=== PATIENT | male | born 1985 | race Caucasian/White ===

== ENCOUNTER 2016-10-08 11:37 | Emergency (ER) | payer OTHER ==
[~2016-10-08] VITALS: Ht 185.4 cm; Wt 83.9 kg
[~2016-10-08 11:37] MED LIST: AMOXICILLIN,AM875 MG PO; AMOXICILLIN500 M2 PO; ANAPROX DS550 MG PO; ANUSOL-HC2.5% RC; AUGMENTIN 875 M1 TAB PO; BACTROBAN OINT22 GM PO; CLEOCIN150 MG PO; CYCLOBENZAPRINE5 M3 PO; DARVOCET N 1001 TAB PO; FLEXERIL10 MG PO; HYDROCODONE BIT1 T11 PO; IBU800 MG PO; KEFLEX500 MG PO; MEDROL DOSEPAK4 MG PO; MOTRIN800 MG PO; Motrin,Rufen800 MG PO; NAPROSYN500 MG PO; NORCO 10-325 T1 EACH PO; NORCO 325 MG-101 TAB PO; NORCO 325 MG-51 TAB PO; PARAFON FORTE500 MG PO; PEN-VK500 MG PO; PENICILLIN VK500 MG PO; PERCOCET 325 MG1 TA2 PO; PERCOCET 325 MG1 TA7 PO; PERCOCET 325 MG1 TAB PO; PHENERGAN25 M1 PO; Peridex 473 ML473 ML PO; TRAMADOL HCL50 MG PO; TRIMOX500 MG PO; ULTRAM50 MG PO; VICODIN 5-3001 EACH PO
[2016-10-08 11:51] VITALS: BP 117/64
[2016-10-08] MEDS ORDERED: PREDNISONE10 MG PO (12:06)
== END 2016-10-08 11:55 | disposition home or self-care (01) ==
LOC: ED 11:37
DX: J06.9 Acute upper respiratory infection, unspecified (principal); M25.562 Pain in left knee; F17.200 Nicotine dependence, unspecified, uncomplicated

== ENCOUNTER 2017-03-11 00:11 | Emergency (ER) | payer OTHER ==
[~2017-03-11 00:11] MED LIST changes: +PREDNISONE10 MG PO
[2017-03-11] MEDS ORDERED: AMOXICILLIN500 M2 PO (00:38)
[2017-03-11 15:58] VITALS: BP 121/80
[2017-03-11] MEDS ORDERED: TYLENOL325 M1 PO (16:51)
== END 2017-03-11 16:54 | disposition home or self-care (01) ==
LOC: ED 00:11
DX: K08.89 Other specified disorders of teeth and supporting structures (principal); F17.200 Nicotine dependence, unspecified, uncomplicated; F19.10 Other psychoactive substance abuse, uncomplicated; Z88.6 Allergy status to analgesic agent

== ENCOUNTER 2017-04-26 08:47 | Emergency (ER) | payer OTHER ==
[~2017-04-26] VITALS: Ht 185.4 cm; Wt 83.9 kg
[~2017-04-26 08:47] MED LIST changes: +TYLENOL325 M1 PO
[2017-04-26 08:54] VITALS: BP 139/90
== END 2017-04-26 11:41 | disposition home or self-care (01) ==
LOC: ED 08:47
DX: M25.562 Pain in left knee (principal); F12.10 Cannabis abuse, uncomplicated; F17.200 Nicotine dependence, unspecified, uncomplicated; Z88.6 Allergy status to analgesic agent

== ENCOUNTER 2017-05-01 10:20 | Emergency (ER) | payer OTHER ==
[~2017-05-01] VITALS: Ht 185.4 cm; Wt 83.9 kg
[2017-05-01 10:25] VITALS: BP 151/84
[2017-05-01] MEDS ORDERED: AMOXICILLIN500 M2 PO (10:54)
[2017-05-01] MEDS ORDERED: NAPROSYN500 MG PO (10:54)
== END 2017-05-01 11:09 | disposition home or self-care (01) ==
LOC: ED 10:20
DX: K08.89 Other specified disorders of teeth and supporting structures (principal); F17.200 Nicotine dependence, unspecified, uncomplicated; Z88.6 Allergy status to analgesic agent

== ENCOUNTER 2018-03-22 18:59 | Emergency (ER) | payer MEDICAID ==
[~2018-03-22] VITALS: Ht 185.4 cm; Wt 104.3 kg
[2018-03-22 20:53] VITALS: BP 110/60
[2018-03-22] MEDS ORDERED: KEFLEX500 M1 PO (22:42)
[2018-03-22] MEDS ORDERED: VICODIN 5-3001 EACH PO (22:42)
== END 2018-03-22 22:57 | disposition home or self-care (01) ==
LOC: ED 18:59
DX: S86.912A Strain of unspecified muscle(s) and tendon(s) at lower leg level, left leg, initial encounter (principal); S66.911A Strain of unspecified muscle, fascia and tendon at wrist and hand level, right hand, initial encounter; S60.011A Contusion of right thumb without damage to nail, initial encounter; S80.212A Abrasion, left knee, initial encounter; S60.511A Abrasion of right hand, initial encounter; S50.812A Abrasion of left forearm, initial encounter; M25.562 Pain in left knee; F17.200 Nicotine dependence, unspecified, uncomplicated; F12.10 Cannabis abuse, uncomplicated; Z88.6 Allergy status to analgesic agent; V19.88XA Pedal cyclist (driver) (passenger) injured in other specified transport accidents, initial encounter; Y93.55 Activity, bike riding; Y92.828 Other wilderness area as the place of occurrence of the external cause; Y99.9 Unspecified external cause status

== ENCOUNTER 2019-12-14 11:09 | Emergency (ER) | payer OTHER ==
[~2019-12-14] VITALS: Ht 185.4 cm; Wt 81.6 kg
[~2019-12-14 11:09] MED LIST changes: +KEFLEX500 M1 PO
[2019-12-14 11:16] VITALS: BP 130/77
[2019-12-14] MEDS ORDERED: PREDNISONE20 M1 PO (13:34)
== END 2019-12-14 13:53 | disposition home or self-care (01) ==
LOC: ED 11:09
DX: M79.674 Pain in right toe(s) (principal); Z88.8 Allergy status to other drugs, medicaments and biological substances

== ENCOUNTER 2020-02-16 07:08 | Emergency (ER) | payer OTHER ==
[~2020-02-16] VITALS: Ht 185.4 cm; Wt 83.9 kg
[~2020-02-16 07:08] MED LIST changes: +PREDNISONE20 M1 PO
[2020-02-16 07:15] VITALS: BP 120/73
[2020-02-16] MEDS ORDERED: TYLENOL325 M1 PO (08:41)
== END 2020-02-16 08:47 | disposition home or self-care (01) ==
LOC: ED 07:08
DX: S92.422A Displaced fracture of distal phalanx of left great toe, initial encounter for closed fracture (principal); Z88.8 Allergy status to other drugs, medicaments and biological substances; Z79.899 Other long term (current) drug therapy; W22.8XXA Striking against or struck by other objects, initial encounter; Y93.89 Activity, other specified; Y92.89 Other specified places as the place of occurrence of the external cause; Y99.8 Other external cause status

== ENCOUNTER 2022-05-14 08:19 | Emergency (ER) | payer OTHER ==
[~2022-05-14] VITALS: Ht 185.4 cm; Wt 77.1 kg
[2022-05-14 08:34] VITALS: BP 138/79
[2022-05-14] MEDS ORDERED: AMOX-CLAV 875-1 EACH PO (09:35)
[2022-05-14] MEDS ORDERED: HYDROCODONE-AC1 EAC1 PO (09:35)
== END 2022-05-14 09:36 | disposition home or self-care (01) ==
LOC: ED 08:19
DX: S02.5XXA Fracture of tooth (traumatic), initial encounter for closed fracture (principal); K04.7 Periapical abscess without sinus; F17.200 Nicotine dependence, unspecified, uncomplicated; X58.XXXA Exposure to other specified factors, initial encounter; Y93.89 Activity, other specified; Y92.89 Other specified places as the place of occurrence of the external cause; Y99.8 Other external cause status

== ENCOUNTER 2022-08-23 10:49 | Emergency (ER) | payer OTHER ==
[~2022-08-23] VITALS: Ht 185.4 cm; Wt 83.9 kg
[~2022-08-23 10:49] MED LIST changes: +AMOX-CLAV 875-1 EACH PO; +HYDROCODONE-AC1 EAC1 PO
[2022-08-23 11:18] VITALS: BP 127/76
== END 2022-08-23 14:05 | disposition home or self-care (01) ==
LOC: ED 10:49
DX: M54.50 Low back pain, unspecified (principal); Z87.891 Personal history of nicotine dependence; V53.6XXA Passenger in pick-up truck or van injured in collision with car, pick-up truck or van in traffic accident, initial encounter; Y93.89 Activity, other specified; Y92.89 Other specified places as the place of occurrence of the external cause; Y99.8 Other external cause status

== ENCOUNTER 2022-11-20 10:02 | Emergency (ER) | payer OTHER ==
[~2022-11-20] VITALS: Wt 72.6 kg
[2022-11-20 10:13] VITALS: BP 145/73
== END 2022-11-20 12:58 | disposition home or self-care (01) ==
LOC: ED 10:02
DX: M79.661 Pain in right lower leg (principal); Z98.890 Other specified postprocedural states; Z87.891 Personal history of nicotine dependence